=== PATIENT | female | born 1965 | race Caucasian/White ===

== ENCOUNTER → 2017-05-31 | Outpatient (REF) ==
[2016-01-20 09:35] VITALS: BP 108/62
[~2017-05-31] MED LIST: AMBIEN10 MG PO; ARMOUR THYROID15 M1 PO; ARMOUR THYROID60 M1 PO; EFFEXOR XR150 M1 PO
== END ==
LOC: LAB 16:14
DX: Z01.89 Encounter for other specified special examinations (principal)

== ENCOUNTER → 2018-04-11 | Day surgery (SDC) | payer BC ==
[2016-01-20 09:35] VITALS: BP 108/62
== END ==
LOC: MSO 09:31
DX: Z12.11 Encounter for screening for malignant neoplasm of colon (principal); E07.9 Disorder of thyroid, unspecified; Z79.899 Other long term (current) drug therapy
CPT/HCPCS: 00812; J2704; J3010; J7120

== ENCOUNTER → 2020-11-06 | Outpatient (CLI) | payer BC ==
[2016-01-20 09:35] VITALS: BP 108/62
== END ==
LOC: MAMMO 10:45
DX: Z13.820 Encounter for screening for osteoporosis (principal); M85.80 Other specified disorders of bone density and structure, unspecified site

== ENCOUNTER → 2020-11-06 | Outpatient (REF) ==
[2016-01-20 09:35] VITALS: BP 108/62
== END ==
LOC: LAB 11:14
DX: E03.4 Atrophy of thyroid (acquired) (principal); M85.80 Other specified disorders of bone density and structure, unspecified site

== ENCOUNTER → 2021-02-06 | Outpatient (REF) ==
[2016-01-20 09:35] VITALS: BP 108/62
== END ==
LOC: LAB 14:08
DX: E03.9 Hypothyroidism, unspecified (principal)

== ENCOUNTER → 2021-03-21 | Outpatient (REF) | LOC: LAB 08:29 | DX: E55.9 Vitamin D deficiency, unspecified (principal); E03.4 Atrophy of thyroid (acquired); R53.83 Other fatigue ==

== ENCOUNTER → 2021-03-27 | Outpatient (CLI) | payer BC | LOC: LAB 15:39 | DX: Z20.822 Contact with and (suspected) exposure to COVID-19 (principal) ==

== ENCOUNTER → 2022-02-23 | Outpatient (REF) | LOC: LAB 08:59 | DX: E03.4 Atrophy of thyroid (acquired) (principal) ==

== ENCOUNTER → 2022-08-05 | Outpatient (REF) | payer BC | LOC: LAB 07:21 | DX: Z00.00 Encounter for general adult medical examination without abnormal findings (principal); E78.5 Hyperlipidemia, unspecified; E03.9 Hypothyroidism, unspecified ==

== ENCOUNTER → 2022-12-01 | Outpatient (CLI) | payer BC | LOC: RAD 08:11 | DX: K57.30 Diverticulosis of large intestine without perforation or abscess without bleeding (principal) | CPT/HCPCS: Q9967 ==

== ENCOUNTER → 2024-01-26 | Outpatient (CLI) | payer BC | LOC: LAB 07:24 | DX: E03.4 Atrophy of thyroid (acquired) (principal) ==